=== PATIENT | male | born 1975 | race African-American/Black ===

== ENCOUNTER 2023-10-12 01:47 | Emergency (ER) | payer SELFPAY ==
[2023-10-12] MEDS ORDERED: fentaNYL 50 MCG/ML 2 ML VIAL IV ONE ×2 (01:55→02:24)
[2023-10-12] MEDS ORDERED: Home HYDROcodone/Acetaminophen 5/325 MG #4 TABS/PACK PO ONE (12:00)
== END 2023-10-12 03:50 ==
LOC: COL.ER 01:47
DX: S80.02XA Contusion of left knee, initial encounter (principal); S00.531A Contusion of lip, initial encounter; Y04.8XXA Assault by other bodily force, initial encounter